=== PATIENT | female | born 1980 | race Caucasian/White ===

== ENCOUNTER 2016-10-02 13:44 | Emergency (ER) | payer OTHER ==
[~2016-10-02] VITALS: Ht 157.5 cm; Wt 61.1 kg
[2016-10-02 13:48] VITALS: TEMP 36.9; Ht 157.5 cm; Wt 61.1 kg
[2016-10-02] MEDS ORDERED: CYCL10TA6 PO (14:17)
[2016-10-02 14:25] VITALS: BP 122/69; PULSE 87; O2SAT 99
--- NOTE | 2016-10-03 10:45 | EMERGENCY ROOM VISIT NOTE ---
ED Visit Note First contact with patient: 13:55 Chief Complaint: Right shoulder and upper back pain. History of Present Illness: Ms. Olivas is a 36-year-old white female who ambulates into the ED complaining of posterior right shoulder pain and thoracic back pain. 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 She is currently seeing specialists in the [place] area; today she reported she had EMG testing and it was reported as normal. She additionally reports it was requested that she discuss an MRI with her biology specialist. Additionally she reports she is currently prescribed Verbank, Soma and Neurontin for her ongoing pain. Patient goes on to report that since her EMG testing today she has been having increasing pain over the anterior portion of the scapula which is radiating into the thoracic and lumbar spine. She does report this is typical of her pain exacerbations with her ongoing shoulder injury. She describes the pain as sharp and crampy. She rates her discomfort 8/10. Her pain is worsens with palpation of the posterior shoulder and scapula, abduction, extension and horizontal flexion and extension of the shoulder. She has not identified any alleviating factors related to the pain. She has not taken a medication for exacerbation of her pain. Associated with her pain she does report she has mild paresthesias of the upper extremities and perceived weakness but the symptoms have not exacerbated with her exacerbation of pain and they are baseline. She denies fevers, chills, sweats, skin eruptions, skin color changes, cervical neck pain, lumbar back pain, recent direct or repetitive trauma, shortness of breath, wheezing, decreased appetite, nausea/vomiting. Review of Systems: As noted above in history of present illness. 8 body systems were reviewed and found to be negative as noted above. Past Medical History: As noted previously, kidney stones, status post appendectomy, partial hysterectomy and unspecified left knee surgery. Current Medications: As previously noted Allergies to Medications: Patient denies. Social History: Patient is currently employed; she feels safe in her home environment; she admits to tobacco use and denies alcohol use. Physical Examination: Vital Signs: Date Time Temp Pulse Resp B/P (MAP) Pulse Ox O2 Delivery O2 Flow Rate FiO2 10/02/16 14:25 87 16 122/69 99 10/02/16 13:48 36.9 109 18 128/78 98 Room Air GENERAL: 36-year-old female in mild to moderate distress due to pain, nontoxic- appearing, afebrile and hemodynamically stable. NEUROLOGICAL: Awake, alert and oriented to person, place and time. Answering questions appropriately and following commands. Normal gait. Good hand eye coordination. No focal motor or sensory deficits. SKIN: Warm, dry and pink. No soft tissue eruptions or trauma noted. HEENT: Atraumatic and normocephalic. BACK: No tenderness over the bony cervical and thoracic spine. Full range of motion of the cervical spine. Moderate tenderness throughout the right paraspinous muscles, right trapezius and right rhomboids with palpable spasm. No CVA tenderness. THORAX: Lungs sounds are clear to auscultation and equal bilaterally with symmetrical chest wall. RIGHT UPPER EXTREMITY: No gross bony deformity. No tenderness over the clavicle , humeral head. Mild tenderness over the medial border of the scapula in the muscular attachment. Decreased range of motion primarily in abduction and extension of the arm but patient reports this as normal.3-4 muscle strength in flexion, extension, abduction and abduction of the shoulder, flexion and extension of the elbow and pronation and supination of the forearm. 2+ bicipital, tricipital and brachial radialis deep tendon reflexes intact and equal bilaterally. Throughout the extremity the skin was warm and pink and capillary refill was brisk. Distal pulses were intact and equal bilaterally. ED Course: Patient is assessed as noted above. Patient's medications list was reviewed. I lengthy conversation with the patient; she was requesting additional pain medications. I reviewed her list with her and I felt there was no additional medications I could offer she was re-on narcotics and muscle relaxers. After our conversation we decided to change her muscle relaxant to Flexeril; she was happy with this decision. Patient discharged home in stable condition; prior to departure she was reassessed and subjectively reported she was feeling better. Clinical Impression: Acute on chronic right shoulder pain. Disposition: Patient discharged home in stable condition; prior to departure she was reassessed and subjectively reported she was feeling much better and rated her discomfort 3/10. Plan: Patient was encouraged to stop taking her Soma and she was prescribed Flexeril 10 mg every 8 hours as needed for muscle spasm or pain. Patient was encouraged to alternate her prescribed hydrocodone and ibuprofen every 3 hours for pain. Patient was encouraged use ice on the area of pain. Patient was encouraged to call her biology specialist for the requested MRI. Patient was encouraged return the ED for worsening pain, worsening sensations of arm weakness, any signs of infection or any new/concerning symptoms.
== END 2016-10-02 14:25 | disposition home or self-care (01) ==
LOC: C.EDB 13:48 → C.EDD 14:25
DX: M25.511 Pain in right shoulder (principal); F17.200 Nicotine dependence, unspecified, uncomplicated